=== PATIENT | male | born 1950 ===

== ENCOUNTER 2020-11-30 21:42 | Observation (INO) | payer MEDICARE, BC ==
[2020-11-30] MEDS ORDERED: Ondansetron 4 MG/2 ML SDV IVPUSH ONE (22:12)
[2020-11-30] MEDS ORDERED: Sodium Chloride 0.9% 10 ML Syringe FLUSH PRN (22:12)
[2020-11-30] MEDS ORDERED: Sodium Chloride 0.9% 1,000 ML IV SCH (22:15)
--- NOTE | 2020-11-30 22:28 | EDM.PDOC ---
<Susanne Borja M - Last Filed: 11/30/20 22:58> ED HPI GENERAL MEDICAL PROBLEM - General Chief Complaint: Gastrointestinal Problem Stated Complaint: WEAK/VOMITING/DEHYDRATED Time Seen by Provider: 11/30/20 21:55 Source of Information: Reports: Patient History Limitations: Reports: No Limitations - History of Present Illness INITIAL COMMENTS - FREE TEXT/NARRATIVE: 70-year-old male presents the emergency department with complaints of abdominal pain, nausea, and vomiting that started about 3:00 this afternoon. Patient states that he believes he has a bowel obstruction. He states he has had several in the past and this feels similar to the previous incidents. He states that about 3:00 this afternoon he developed abdominal cramping type of pain. He has also been chilled. Unknown whether or not he has had a fever. 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 Patient states that he has not had anything out of his ileostomy bag since the day before yesterday. He states that prior to 3:00 today he felt well and had had no recent fever, chills, nausea, vomiting or diarrhea. He has not had any cough, shortness of breath headache or sore throat or nasal drainage. He states he has been able to eat however he has not been taking much in the way of p.o. fluids and believes he is dehydrated. Of note, the patient's primary care provider is located in [place]. The patient states that he is traveling through to [place]. He does take a diuretic when he states his feet swell. He also takes narcotics chronically for chronic back pain. He also states that he takes low-dose Augmentin whenever he has abdominal cramping. He did take a dose of Augmentin today when he developed the abdominal cramps. Abdomen Pain Score (Numeric/FACES): 8 - Related Data Allergies Allergy/AdvReac Type Severity Reaction Status Date / Time No Known Allergies Allergy Verified 11/30/20 21:59 Home Meds: Home Meds Glucosamine [Glucosamine Sulfate] 500 mg PO DAILY 10/15/15 [History] Neon-3 Fatty Acids [Fish Oil] 500 mg PO DAILY 10/15/15 [History] Omeprazole 20 mg PO DAILY 10/15/15 [History] Zolpidem [Ambien] 5 mg PO BEDTIME 10/15/15 [History] oxyCODONE ER [OxyCONTIN] 10 mg PO Q12H PRN 10/15/15 [History] oxyCODONE HCl/Acetaminophen [Oxycodone-Acetaminophen 5-325] 0.5 tab PO QID PRN 10/15/15 [History] polyethylene glycoL 3350 [Miralax] 17 gm PO DAILY 10/15/15 [History] Past Medical History - Past Health History Medical/Surgical History: Denies Medical/Surgical History HEENT History: Reports: Impaired Vision Gastrointestinal History: Reports: Bowel Obstruction, Other (See Below) Other Gastrointestinal History: colostomy. Genitourinary History: Reports: Prostate Disorder, Other (See Below) Other Genitourinary History: urostomy Musculoskeletal History: Reports: Back Pain, Chronic Oncologic (Cancer) History: Reports: Prostate - Infectious Disease History Infectious Disease History: Reports: Chicken Pox, MRSA - Past Surgical History GI Surgical History: Reports: Colostomy Male Surgical History: Reports: Prostatectomy Musculoskeletal Surgical History: Reports: Other (See Below) Other Musculoskeletal Surgeries/Procedures:: back surg Other Oncologic Surgeries/Procedures: with radiation treatment Social & Family History - Family History Family Medical History: No Pertinent Family History - Tobacco Use Tobacco Use Status *Q: Never Tobacco User Second Hand Smoke Exposure: No - Caffeine Use Caffeine Use: Reports: Coffee - Recreational Drug Use Recreational Drug Use: No ED ROS GENERAL - Review of Systems Review Of Systems: Comprehensive ROS is negative, except as noted in HPI. ED EXAM, GI/ABD - Physical Exam Exam: See Below Exam Limited By: No Limitations General Appearance: Alert, WD/WN, Mild Distress Ears: Normal External Exam, Hearing Grossly Normal Nose: Normal Inspection Throat/Mouth: Normal Inspection, Normal Lips, Normal Voice, No Airway Compromise Head: Atraumatic Neck: Normal Inspection, Supple Respiratory/Chest: No Respiratory Distress, Lungs Clear, Normal Breath Sounds, No Accessory Muscle Use, Chest Non-Tender Cardiovascular: Normal Peripheral Pulses, Regular Rate, Rhythm, No Edema, No Murmur GI/Abdominal Exam: Normal Bowel Sounds, Non-Tender, Distended. No: Soft (Semifirm) (Male) Exam: Deferred Rectal (Males) Exam: Deferred Back Exam: Normal Inspection Extremities: Normal Inspection Neurological: Alert, Oriented, Normal Cognition Psychiatric: Normal Mood, Flat Affect Skin Exam: Warm, Dry, Intact, Normal Color, No Rash Lymphatic: No Adenopathy Course - Vital Signs Text/Narrative:: As stated above, the patient developed generalized abdominal discomfort, nausea, and vomiting at about 3 PM this afternoon. He also reports chills. He does have a history of bowel obstructions in the past and states that this feels similar to those incidents. Upon assessment, the patient is curled onto his left side as he states it feels better when he lays this way. He does have positive bowel tones in all 4 quadrants. Abdomen is slightly distended and firm. Patient denies abdominal tenderness with palpation. There is no stool noted in his colostomy bag. I have ordered labs to include a CBC, CMP, magnesium level, urinalysis with micro and culture if indicated, and a flat and upright of the abdomen. Patient will receive normal saline and Zofran. - Re-Assessments/Exams Free Text/Narrative Re-Assessment/Exam: 11/30/20 22:58 I have handed over care to Dr. Rajan. Departure - Departure Disposition: Refer to Observation Clinical Impression: Small bowel obstruction - Discharge Information Referrals: Tiffany Gaspar, RN [Primary Care Provider] - Forms: ED Department Discharge Sepsis Event Note (ED) - Evaluation Sepsis Screening Result: No Definite Risk <Reynold Rajan - Last Filed: 12/01/20 08:40> Course - Vital Signs Last Recorded V/S: Last Vital Signs Temp 36.3 C 11/30/20 21:56 Pulse 48 L 11/30/20 21:56 Resp 20 11/30/20 21:56 BP 162/69 H 11/30/20 21:56 Pulse Ox 97 11/30/20 21:56 - Orders/Labs/Meds Orders: Active Orders 24 hr Category Date Time Status Abdomen 2V AP Flat Upright [CR] Stat Exams 11/30/20 22:14 Taken Abdomen Pelvis w Cont [CT] Stat Exams 12/01/20 04:09 Taken Lactated Ringers @ 125 MLS/HR(1000ml Bag) Med 12/01/20 08:45 Ordered Lactated Ringers [Ringers, Lactated] 1,000 ml IV ASDIRECTED Sodium Chloride 0.9% [Normal Saline] 1,000 ml Med 11/30/20 22:15 Stop Req IV ASDIRECTED Sodium Chloride 0.9% [Saline Flush] Med 11/30/20 22:12 Active 10 ml FLUSH ASDIRECTED PRN Sodium Chloride 0.9% [Saline Flush] Med 12/01/20 08:32 Active 10 ml FLUSH ONETIME PRN Saline Lock Insert [OM.PC] Stat Oth 11/30/20 22:12 Ordered Medication Orders Sodium Chloride (Normal Saline) 1,000 mls @ 150 mls/hr IV ASDIRECTED NELSON Last Admin: 11/30/20 22:34 Dose: 150 mls/hr Documented by: BOLA Sodium Chloride (Sodium Chloride 0.9% 10 Ml Syringe) 10 ml FLUSH ASDIRECTED PRN PRN Reason: Keep Vein Open Last Admin: 11/30/20 22:34 Dose: 10 ml Documented by: BOLA Sodium Chloride (Sodium Chloride 0.9% 10 Ml Syringe) 10 ml FLUSH ONETIME PRN PRN Reason: IV FLUSH Last Admin: 12/01/20 08:33 Dose: 10 ml Documented by: ESTER Labs: Laboratory Tests 11/30/20 11/30/20 12/01/20 Range/Units 22:26 22:26 00:54 WBC 8.80 (4.23-9.07) K/mm3 RBC 4.00 L (4.63-6.08) M/mm3 Hgb 13.0 L (13.7-17.5) gm/dl Hct 38.5 L (40.1-51.0) % MCV 96.3 H (79.0-92.2) fl MCH 32.5 H (25.7-32.2) pg MCHC 33.8 (32.2-35.5) g/dl RDW Std Deviation 47.5 H (35.1-43.9) fL Plt Count 179 (163-337) K/mm3 MPV 9.0 L (9.4-12.3) fl Neut % (Auto) 89.9 H (34.0-67.9) % Lymph % (Auto) 6.3 L (21.8-53.1) % [place] % (Auto) 3.4 L (5.3-12.2) % Eos % (Auto) 0 L (0.8-7.0) Baso % (Auto) 0.1 (0.1-1.2) % Neut # (Auto) 7.91 H (1.78-5.38) K/mm3 Lymph # (Auto) 0.55 L (1.32-3.57) K/mm3 [place] # (Auto) 0.30 (0.30-0.82) K/mm3 Eos # (Auto) 0.00 L (0.04-0.54) K/mm3 Baso # (Auto) 0.01 (0.01-0.08) K/mm3 Manual Slide Review Abnormal smear Sodium 145 (136-145) mEq/L Potassium 3.8 (3.5-5.1) mEq/L Chloride 105 (98-107) mEq/L Carbon Dioxide 30 (21-32) mEq/L Anion Gap 13.8 (5-15) BUN 18 (7-18) mg/dL Creatinine 0.9 (0.7-1.3) mg/dL Est Cr Clr Drug Dosing 78.86 mL/min Estimated GFR (MDRD) > 60 (>60) mL/min BUN/Creatinine Ratio 20.0 H (14-18) Glucose 144 H (70-99) mg/dL Calcium 9.4 (8.5-10.1) mg/dL Magnesium 2.1 (1.8-2.4) mg/dL Total Bilirubin 0.6 (0.2-1.0) mg/dL AST 27 (15-37) U/L ALT 25 (16-63) U/L Alkaline Phosphatase 80 (46-116) U/L Total Protein 7.4 (6.4-8.2) g/dl Albumin 4.0 (3.4-5.0) g/dl Globulin 3.4 gm/dL Albumin/Globulin Ratio 1.2 (1-2) Urine Color Yellow (Yellow) Urine Appearance Slt cloudy H (Clear) Urine pH 8.5 H (5.0-8.0) Ur Specific [place] 1.020 (1.005-1.030) Urine Protein Negative (Negative) Urine Glucose (UA) Negative (Negative) Urine Ketones Negative (Negative) Urine Occult Blood Negative (Negative) Urine Nitrite Negative (Negative) Urine Bilirubin Negative (Negative) Urine Urobilinogen 0.2 (0.2-1.0) Ur Leukocyte Esterase Negative (Negative) Meds: Medications Generic Name Dose Route Start Last Admin Trade Name Freq PRN Reason Stop Dose Admin Sodium Chloride 1,000 mls @ 150 mls/hr 11/30/20 22:15 11/30/20 22:34 Normal Saline IV 150 mls/hr ASDIRECTED NELSON Administration Sodium Chloride 10 ml 11/30/20 22:12 11/30/20 22:34 Sodium Chloride 0.9% 10 Ml Syringe FLUSH 10 ml ASDIRECTED PRN Administration Keep Vein Open Sodium Chloride 10 ml 12/01/20 08:32 12/01/20 08:33 Sodium Chloride 0.9% 10 Ml Syringe FLUSH 10 ml ONETIME PRN Administration IV FLUSH Discontinued Medications Generic Name Dose Route Start Last Admin Trade Name Freq PRN Reason Stop Dose Admin Acetaminophen Confirm 12/01/20 03:18 Acetaminophen 325 Mg Tab Administered 12/01/20 03:19 Dose 650 mg .ROUTE .STK-MED ONE Acetaminophen 325 mg 12/01/20 04:07 12/01/20 04:08 Acetaminophen 325 Mg Tab PO 12/01/20 04:08 325 mg NOW ONE Administration Diatrizoate Meglum/Diatrizoate Sod 120 ml 12/01/20 08:32 12/01/20 08:33 Diatrizoate Meglumine/Diatrizoate Sodium 37% 120 Ml Bottle PO 12/01/20 08:33 30 ml ONETIME ONE Administration Iopamidol 100 ml 12/01/20 08:32 12/01/20 08:33 Iopamidol 612 Mg/Ml 100 Ml Bottle IVPUSH 12/01/20 08:33 100 ml ONETIME ONE Administration Ondansetron HCl 4 mg 11/30/20 22:12 11/30/20 22:34 Ondansetron 4 Mg/2 Ml Sdv IVPUSH 11/30/20 22:13 4 mg ONETIME ONE Administration - Re-Assessments/Exams Free Text/Narrative Re-Assessment/Exam: 12/01/20 04:04 Upright abdominal radiographs appear to demonstrate numerous small stepwise air-fluid levels on the left, concerning for small bowel obstruction. There is scoliosis. Surgical clips noted in the right upper quadrant, consistent with prior cholecystectomy. Numerous pelvic surgical clips. L4L5 fusion hardware noted. External metallic items, including a zipper and clips incidentally noted. Formal read per the Radiologist pending. The patient's CBC is remarkable for an H/H depressed at 13.0/38.5, with remainder of his CBC being unremarkable. His CMP is remarkable for mild hyperglycemia of 144, with the remainder of his CMP being unremarkable. His magnesium level is within normal limits at 2.1. His urinalysis is unremarkable. Based on the above, I have ordered a CT of the abdomen and pelvis with oral and IV contrast to evaluate for a small bowel obstruction. 12/01/20 08:34 T of the abdomen and pelvis with oral and IV contrast is read by Mirna Srivastava as: 1. Findings within the pelvis compatible with previous surgery. Urinary diversion is seen as well as left-sided colostomy. Soft tissue density within the paratracheal region is most likely postsurgical. 2. Mildly increased size of small bowel loops containing fluid. Findings felt compatible with a small bowel obstruction with transition point appearing to be within the right lower abdomen which most likely represents nonvisualized adhesions. 3. Dilated left ureter which most likely is postsurgical as no etiology is seen. 4. Spine findings are noted above which are likely chronic. Case discussed with Dr. Bales at 08:32. She agreed to place the patient into observation. She would like the patient to be on LR at 125 mL/h. Departure - Departure Time of Disposition: 08:38 Condition: Good - Discharge Information *PRESCRIPTION DRUG MONITORING PROGRAM REVIEWED*: Not Applicable *COPY OF PRESCRIPTION DRUG MONITORING REPORT IN PATIENT DARREN: Not Applicable Sepsis Event Note (ED) - Focused Exam Vital Signs: Vital Signs Temp Pulse Resp BP Pulse Ox 11/30/20 21:56 36.3 C 48 L 20 162/69 H 97 - My Orders Last 24 Hours: My Active Orders 12/01/20 04:09 Abdomen Pelvis w Cont [CT] Stat 12/01/20 08:45 Lactated Ringers @ 125 MLS/HR(1000ml Bag) Lactated Ringers [Ringers, Lactated] 1,000 ml IV ASDIRECTED - Assessment/Plan Last 24 Hours: My Active Orders 12/01/20 04:09 Abdomen Pelvis w Cont [CT] Stat 12/01/20 08:45 Lactated Ringers @ 125 MLS/HR(1000ml Bag) Lactated Ringers [Ringers, Lactated] 1,000 ml IV ASDIRECTED
[2020-12-01] MEDS ORDERED: Acetaminophen 325 MG Tab ONE (03:18)
[2020-12-01] MEDS ORDERED: Acetaminophen 325 MG Tab PO ONE (04:07)
[2020-12-01] MEDS ORDERED: Diatrizoate Meglumine/Diatrizoate Sodium 37% 120 ML Bottle PO ONE (08:32)
[2020-12-01] MEDS ORDERED: Sodium Chloride 0.9% 10 ML Syringe FLUSH PRN (08:32)
[2020-12-01] MEDS ORDERED: Iopamidol 612 MG/ML 100 ML Bottle IVPUSH ONE (08:32)
[2020-12-01] MEDS: Lactated Ringers 1,000 ML IV SCH ×2 (08:54→16:43)
--- NOTE | 2020-12-01 10:19 | CR ---
Abdomen: Upright and supine views of the abdomen were obtained. Comparison: No prior abdominal imaging is available. Scattered dilated left-sided small bowel loops showing differential air-fluid levels. These findings are suspicious for partial small bowel obstruction. Surgical clips are seen from prior cholecystectomy. Surgical clips are seen within the pelvis. Previous lumbar spine surgery is noted at L4-5 with trans- pedicle screws. No discrete soft tissue abnormality is definitely appreciated. Slight atelectasis is seen within the left lung base. Impression: 1. Findings suspicious for mild proximal small bowel obstruction which is most likely partial. Please correlate with the patient's symptoms. 2. Other findings believed to be incidental as noted above. Diagnostic code #3 MTDD
--- NOTE | 2020-12-01 10:35 | CT ---
CT abdomen and pelvis Technique: Multiple axial sections were obtained from above the dome of the diaphragm inferiorly through the pubic symphysis. Intravenous contrast was utilized. Oral contrast was given which remains within the stomach. Reconstructed coronal and sagittal images were obtained. Comparison: Prior abdominal x-ray performed earlier on same day (10:55 PM). Findings: Visualized lung bases show increased density within both lung bases most likely representing a combination of scarring and atelectasis. Coronary artery calcification is noted. Liver shows no focal abnormality. Spleen size is normal. Adrenal glands show no nodule. Surgical clips are seen from prior cholecystectomy. Pancreas shows no discrete abnormality. Left ureter is dilated and etiology for this dilatation is not seen on this exam which is likely post-surgical. Bladder is not visualized with evidence of urinary diversion. Multiple surgical clips are seen within the pelvis. Soft tissue density is seen within the presacral region presumably due to prior surgery. Abdominal aorta shows atherosclerotic calcification with no aneurysm. Atherosclerotic calcification continues into the iliac vessels. No retroperitoneal adenopathy is seen. Left-sided colostomy is noted. Mildly dilated small bowel loops containing fluid are seen within the left side of the abdomen as well as a minimal dilated right-sided small bowel loops. Distal small bowel loops show no dilatation. Point of change appears to be within the right lower abdomen and no etiology is seen and this is most likely due to adhesions. Surgical clips are seen within the bowel within the right abdomen. Slight increased stool is noted within the colon. Bone window settings were reviewed which show severe compression deformity of L1 with retrolisthesis of the posterior vertebral line into the central canal by approximately 8 mm causing mild central canal stenosis which is likely chronic. Previous surgery is noted at L4-5 with trans-pedicle screws. Lesser degenerative change as noted above. Impression: 1. Findings within the pelvis compatible with previous surgery. Urinary diversion is seen as well as left-sided colostomy. Soft tissue density within the pretracheal region is most likely post-surgical. 2. Mildly increased size of small bowel loops containing fluid. Findings are felt compatible with a mild small bowel obstruction with transition point appearing to be within the right lower abdomen which most likely represents nonvisualized adhesions. 3. Dilated left ureter which most likely is post-surgical as no etiology is seen. 4. Spine findings as noted above which are likely chronic. Diagnostic code #3 MTDD
--- NOTE | 2020-12-01 12:49 | PCM.HP.2 ---
H&P History of Present Illness - General Date of Service: 12/01/20 Admit Problem/Dx: Admission Diagnosis/Problem Admission Diagnosis/Problem Small bowel obstruction Source of Information: Patient, Provider History Limitations: Reports: No Limitations - History of Present Illness Initial Comments - Free Text/Narative: The patient is a 70y/o gentleman who presents with a small bowel obstruction. He reports having nausea, vomiting, and abdominal pain that started yesterday a fternoon. He reports the last gas or stool in his ostomy was approximately 2 days ago. He had subjective fever and chills yesterday evening. He presented to the ED and had radiologic evaluation that showed a small bowel obstruction. He currently denies any abdominal pain, nausea or vomiting. Abdomen Pain Score (Numeric/FACES): 8 - Related Data Allergies/Adverse Reactions: Allergies Allergy/AdvReac Type Severity Reaction Status Date / Time No Known Allergies Allergy Verified 12/01/20 11:52 Home Medications: Home Meds Glucosamine [Glucosamine Sulfate] 500 mg PO DAILY 10/15/15 [History] [place]-3 Fatty Acids [Fish Oil] 500 mg PO DAILY 10/15/15 [History] Omeprazole 20 mg PO DAILY 10/15/15 [History] Zolpidem [Ambien] 5 mg PO BEDTIME 10/15/15 [History] oxyCODONE ER [OxyCONTIN] 10 mg PO Q12H PRN 10/15/15 [History] oxyCODONE HCl/Acetaminophen [Oxycodone-Acetaminophen 5-325] 0.5 tab PO QID PRN 10/15/15 [History] polyethylene glycoL 3350 [Miralax] 17 gm PO DAILY 10/15/15 [History] Past Medical History HEENT History: Reports: Impaired Vision, Other (See Below) Other HEENT History: wear glasses Gastrointestinal History: Reports: Bowel Obstruction Other Gastrointestinal History: colostomy. Genitourinary History: Reports: Prostate Disorder, Other (See Below) Other Genitourinary History: urostomy Musculoskeletal History: Reports: Back Pain, Chronic Oncologic (Cancer) History: Reports: Prostate, Other (See Below) Other Oncologic History: skin cancer-pt states had removed - Infectious Disease History Infectious Disease History: Reports: Chicken Pox, Measles, MRSA, Mumps, Other (See Below) Other Infectious Disease History: pt states has hx of mrsa - Past Surgical History GI Surgical History: Reports: Colostomy Male Surgical History: Reports: Prostatectomy, Other (See Below) (urostomy placement) Musculoskeletal Surgical History: Reports: Shoulder Replacement, Other (See Below) Other Musculoskeletal Surgeries/Procedures:: back sx Other Oncologic Surgeries/Procedures: with radiation treatment Social & Family History - Family History Family Medical History: No Pertinent Family History (mother and father are , no medical problems) - Tobacco Use Tobacco Use Status *Q: Never Tobacco User Second Hand Smoke Exposure: No - Caffeine Use Caffeine Use: Reports: Coffee, Soda - Recreational Drug Use Recreational Drug Use: No H&P Review of Systems - Review of Systems: Review Of Systems: See Below General: Reports: Fever, Chills HEENT: Reports: No Symptoms Pulmonary: Reports: No Symptoms Cardiovascular: Reports: No Symptoms Gastrointestinal: Reports: No Symptoms Genitourinary: Reports: No Symptoms Hematologic/Lymphatic: Reports: No Symptoms Exam - Exam Exam: See Below - Vital Signs Vital Signs: Last Vital Signs Temp 37.2 C 12/01/20 11:55 Pulse 57 L 12/01/20 11:55 Resp 12 12/01/20 11:55 BP 127/64 12/01/20 11:55 Pulse Ox 100 12/01/20 11:55 Weight: 95.935 kg - Exam Quality Assessment: No: Supplemental Oxygen General: Alert, Oriented HEENT: Conjunctiva Clear, EOMI Neck: Supple Lungs: Clear to Auscultation, Normal Respiratory Effort Cardiovascular: Regular Rate, Regular Rhythm, Systolic Murmur GI/Abdominal Exam: Soft, Non-Tender, Distended Extremities: Normal Inspection, No Pedal Edema Peripheral Pulses: 2+: Dorsalis Pedis (L), Dorsalis Pedis (R) Skin: Warm, Dry, Intact Neurological: Cranial Nerves Intact Neuro Extensive - Mental Status: Normal Mood/Affect - Patient Data Lab Results Last 24 hrs: Laboratory Results - last 24 hr 11/30/20 11/30/20 12/01/20 Range/Units 22:26 22:26 00:54 WBC 8.80 (4.23-9.07) K/mm3 RBC 4.00 L (4.63-6.08) M/mm3 Hgb 13.0 L (13.7-17.5) gm/dl Hct 38.5 L (40.1-51.0) % MCV 96.3 H (79.0-92.2) fl MCH 32.5 H (25.7-32.2) pg MCHC 33.8 (32.2-35.5) g/dl RDW Std Deviation 47.5 H (35.1-43.9) fL Plt Count 179 (163-337) K/mm3 MPV 9.0 L (9.4-12.3) fl Neut % (Auto) 89.9 H (34.0-67.9) % Lymph % (Auto) 6.3 L (21.8-53.1) % [place] % (Auto) 3.4 L (5.3-12.2) % Eos % (Auto) 0 L (0.8-7.0) Baso % (Auto) 0.1 (0.1-1.2) % Neut # (Auto) 7.91 H (1.78-5.38) K/mm3 Lymph # (Auto) 0.55 L (1.32-3.57) K/mm3 [place] # (Auto) 0.30 (0.30-0.82) K/mm3 Eos # (Auto) 0.00 L (0.04-0.54) K/mm3 Baso # (Auto) 0.01 (0.01-0.08) K/mm3 Manual Slide Review Abnormal smear Sodium 145 (136-145) mEq/L Potassium 3.8 (3.5-5.1) mEq/L Chloride 105 (98-107) mEq/L Carbon Dioxide 30 (21-32) mEq/L Anion Gap 13.8 (5-15) BUN 18 (7-18) mg/dL Creatinine 0.9 (0.7-1.3) mg/dL Est Cr Clr Drug Dosing 78.86 mL/min Estimated GFR (MDRD) > 60 (>60) mL/min BUN/Creatinine Ratio 20.0 H (14-18) Glucose 144 H (70-99) mg/dL Calcium 9.4 (8.5-10.1) mg/dL Magnesium 2.1 (1.8-2.4) mg/dL Total Bilirubin 0.6 (0.2-1.0) mg/dL AST 27 (15-37) U/L ALT 25 (16-63) U/L Alkaline Phosphatase 80 (46-116) U/L Total Protein 7.4 (6.4-8.2) g/dl Albumin 4.0 (3.4-5.0) g/dl Globulin 3.4 gm/dL Albumin/Globulin Ratio 1.2 (1-2) Urine Color Yellow (Yellow) Urine Appearance Slt cloudy H (Clear) Urine pH 8.5 H (5.0-8.0) Ur Specific [place] 1.020 (1.005-1.030) Urine Protein Negative (Negative) Urine Glucose (UA) Negative (Negative) Urine Ketones Negative (Negative) Urine Occult Blood Negative (Negative) Urine Nitrite Negative (Negative) Urine Bilirubin Negative (Negative) Urine Urobilinogen 0.2 (0.2-1.0) Ur Leukocyte Esterase Negative (Negative) SARS-CoV-2 RNA (MARIA A) (NEGATIVE) 12/01/20 Range/Units 09:58 WBC (4.23-9.07) K/mm3 RBC (4.63-6.08) M/mm3 Hgb (13.7-17.5) gm/dl Hct (40.1-51.0) % MCV (79.0-92.2) fl MCH (25.7-32.2) pg MCHC (32.2-35.5) g/dl RDW Std Deviation (35.1-43.9) fL Plt Count (163-337) K/mm3 MPV (9.4-12.3) fl Neut % (Auto) (34.0-67.9) % Lymph % (Auto) (21.8-53.1) % [place] % (Auto) (5.3-12.2) % Eos % (Auto) (0.8-7.0) Baso % (Auto) (0.1-1.2) % Neut # (Auto) (1.78-5.38) K/mm3 Lymph # (Auto) (1.32-3.57) K/mm3 [place] # (Auto) (0.30-0.82) K/mm3 Eos # (Auto) (0.04-0.54) K/mm3 Baso # (Auto) (0.01-0.08) K/mm3 Manual Slide Review Sodium (136-145) mEq/L Potassium (3.5-5.1) mEq/L Chloride (98-107) mEq/L Carbon Dioxide (21-32) mEq/L Anion Gap (5-15) BUN (7-18) mg/dL Creatinine (0.7-1.3) mg/dL Est Cr Clr Drug Dosing mL/min Estimated GFR (MDRD) (>60) mL/min BUN/Creatinine Ratio (14-18) Glucose (70-99) mg/dL Calcium (8.5-10.1) mg/dL Magnesium (1.8-2.4) mg/dL Total Bilirubin (0.2-1.0) mg/dL AST (15-37) U/L ALT (16-63) U/L Alkaline Phosphatase (46-116) U/L Total Protein (6.4-8.2) g/dl Albumin (3.4-5.0) g/dl Globulin gm/dL Albumin/Globulin Ratio (1-2) Urine Color (Yellow) Urine Appearance (Clear) Urine pH (5.0-8.0) Ur Specific [place] (1.005-1.030) Urine Protein (Negative) Urine Glucose (UA) (Negative) Urine Ketones (Negative) Urine Occult Blood (Negative) Urine Nitrite (Negative) Urine Bilirubin (Negative) Urine Urobilinogen (0.2-1.0) Ur Leukocyte Esterase (Negative) SARS-CoV-2 RNA (MARIA A) Negative (NEGATIVE) Result Diagrams: 11/30/20 22:26 11/30/20 22:26 Sepsis Event Note - Evaluation Sepsis Screening Result: No Definite Risk - Focused Exam Vital Signs: Vital Signs Temp Pulse Resp BP Pulse Ox 12/01/20 11:55 37.2 C 57 L 12 127/64 100 12/01/20 11:32 37.2 C 56 L 20 127/64 99 12/01/20 08:55 37.1 C 58 L 12 120/65 98 *Q Meaningful Use (ADM) - VTE Risk Assess *Q Each Risk Factor Represents 1 Point: Obesity ( BMI > 25 kg/m2) Total Score 1 Point Risk Factors: 1 Each Risk Factor Represents 2 Points: Age 60 - 74 Years, Malignancy (present or previous) Total Score 2 Point Risk Factors: 4 - Problem List (1) Small bowel obstruction SNOMED Code(s): 692711079 ICD Code: K56.609 - UNSP INTESTNL OBST, UNSP TO PARTIAL VERSUS COMPLETE OBST Status: Acute Current Visit: Yes Problem List Initiated/Reviewed/Updated: Yes Orders Last 24hrs: Active Orders 24 hr Category Date Time Status Patient Status [ADT] Routine ADT 12/01/20 10:00 Active METH-RESIST S.AUR,MRSA BY PCR [MOLEC] Routine Lab 12/01/20 12:04 Ordered MISCELLANEOUS CULT [MREF] Routine Lab 12/01/20 12:06 Ordered Lactated Ringers [Ringers, Lactated] 1,000 ml Med 12/01/20 08:45 Active IV ASDIRECTED Sodium Chloride 0.9% [Saline Flush] Med 11/30/20 22:12 Active 10 ml FLUSH ASDIRECTED PRN Sodium Chloride 0.9% [Saline Flush] Med 12/01/20 08:32 Active 10 ml FLUSH ONETIME PRN Saline Lock Insert [OM.PC] Stat Oth 11/30/20 22:12 Ordered Resuscitation Status Routine Resus Stat 12/01/20 11:53 Ordered Medication Orders Lactated Ringer's (Ringers, Lactated) 1,000 mls @ 125 mls/hr IV ASDIRECTED [facility] Last Admin: 12/01/20 08:54 Dose: 125 mls/hr Documented by: ELVIN Sodium Chloride (Sodium Chloride 0.9% 10 Ml Syringe) 10 ml FLUSH ASDIRECTED PRN PRN Reason: Keep Vein Open Last Admin: 11/30/20 22:34 Dose: 10 ml Documented by: BOLA Sodium Chloride (Sodium Chloride 0.9% 10 Ml Syringe) 10 ml FLUSH ONETIME PRN PRN Reason: IV FLUSH Last Admin: 12/01/20 08:33 Dose: 10 ml Documented by: ESTER Assessment/Plan Comment:: 70 y/o gentleman with small bowel obstruction - pt appears to have a low grade obstruction, no current pain, nausea or vomiting. Will place NGT if his symptoms worsen - NPO with IVF resuscitation NS @125 - may have home medications with a sip of water, otherwise maintain NPO - pt to continue his ostomy care, with nursing to assist only as needed - await return of bowel function Alisia Bales MD General surgery - Mortality Measure Prognosis:: Good
[2020-12-01] MEDS ORDERED: oxyCODONE ER 10 MG TAB.ER PO PRN (12:55)
[2020-12-01] MEDS ORDERED: Acetaminophen/oxyCODONE 325-5 MG Tab PO PRN (12:55)
[2020-12-01] MEDS: Acetaminophen 325 MG Tab PO PRN ×2 (14:01→19:31)
[2020-12-01] MEDS ORDERED: Carboxymethylcellulose Sodium 1% Ophth Gel 15 ML Bottle EYEBOTH PRN (14:27)
[2020-12-01] MEDS: Heparin Sodium 5,000 Units/ML Vial SUBCUT SCH ×2 (15:15→23:44)
[2020-12-01] MEDS: Meloxicam 7.5 MG Tab PO SCH (20:08)
[2020-12-01] MEDS ORDERED: Zolpidem 5 MG Tab PO SCH (21:00)
[2020-12-02] MEDS: Lactated Ringers 1,000 ML IV SCH (00:45)
[2020-12-02] MEDS: Heparin Sodium 5,000 Units/ML Vial SUBCUT SCH (06:07)
[2020-12-02] MEDS ORDERED: Acetaminophen/oxyCODONE 325-5 MG Tab PO PRN (08:45)
[2020-12-02] MEDS ORDERED: oxyCODONE ER 10 MG TAB.ER PO PRN (08:45)
[2020-12-02] MEDS ORDERED: Omeprazole 20 MG Cap.CR PO SCH (09:00)
[2020-12-02] MEDS ORDERED: GLUCOSAMINE 500 MG PO SCH (09:00)
[2020-12-02] MEDS ORDERED: Ascorbic Acid 500 MG Tab PO SCH (09:00)
[2020-12-02] MEDS ORDERED: Ferrous Sulfate 324 MG Tab.EC PO SCH (09:00)
[2020-12-02] MEDS ORDERED: Hydrochlorothiazide 25 MG Tab PO SCH ×2 (09:00)
[2020-12-02] MEDS ORDERED: OMEGA PO SCH (09:00)
[2020-12-02] MEDS ORDERED: FATTY ACIDS PO SCH (09:00)
[2020-12-02] MEDS: Meloxicam 7.5 MG Tab PO SCH (09:09)
[2020-12-02 10:01] VITALS: BP 133/72; PULSE 57
--- NOTE | 2020-12-02 10:24 | PCM.SURGPN ---
- General Info Date of Service: 12/02/20 Admission Diagnosis/Problem: Small bowel obstruction Functional Status: Reports: Pain Controlled, Tolerating Diet, Other (pt had ROBF with two bowel movements yesterday) - Patient Data Vitals - Most Recent: Last Vital Signs Temp 36.6 C 12/02/20 09:13 Pulse 57 L 12/02/20 09:13 Resp 20 12/02/20 09:13 BP 133/72 12/02/20 09:13 Pulse Ox 98 12/02/20 09:13 Weight - Most Recent: 95.481 kg I&O - Last 24 Hours: Intake & Output 12/01/20 12/02/20 12/02/20 22:59 06:59 14:59 Intake Total 165 2265 Output Total 125 200 Balance 40 2065 Lab Results Last 24 Hrs: Laboratory Results - last 24 hr 12/01/20 12/01/20 12/02/20 Range/Units 09:58 13:26 05:28 WBC 6.66 (4.23-9.07) K/mm3 RBC 3.49 L (4.63-6.08) M/mm3 Hgb 11.3 L D (13.7-17.5) gm/dl Hct 34.4 L (40.1-51.0) % MCV 98.6 H (79.0-92.2) fl MCH 32.4 H (25.7-32.2) pg MCHC 32.8 (32.2-35.5) g/dl RDW Std Deviation 48.9 H (35.1-43.9) fL Plt Count 150 L (163-337) K/mm3 MPV 9.6 (9.4-12.3) fl Neut % (Auto) 75.9 H (34.0-67.9) % Lymph % (Auto) 14.4 L (21.8-53.1) % [place] % (Auto) 9.0 (5.3-12.2) % Eos % (Auto) 0.3 L (0.8-7.0) Baso % (Auto) 0.2 (0.1-1.2) % Neut # (Auto) 5.06 (1.78-5.38) K/mm3 Lymph # (Auto) 0.96 L (1.32-3.57) K/mm3 [place] # (Auto) 0.60 (0.30-0.82) K/mm3 Eos # (Auto) 0.02 L (0.04-0.54) K/mm3 Baso # (Auto) 0.01 (0.01-0.08) K/mm3 Sodium (136-145) mEq/L Potassium (3.5-5.1) mEq/L Chloride (98-107) mEq/L Carbon Dioxide (21-32) mEq/L Anion Gap (5-15) BUN (7-18) mg/dL Creatinine (0.7-1.3) mg/dL Est Cr Clr Drug Dosing mL/min Estimated GFR (MDRD) (>60) mL/min BUN/Creatinine Ratio (14-18) Glucose (70-99) mg/dL Calcium (8.5-10.1) mg/dL Phosphorus (2.6-4.7) mg/dL Magnesium (1.8-2.4) mg/dL SARS-CoV-2 RNA (MARIA A) Negative (NEGATIVE) MRSA (PCR) Negative 12/02/20 Range/Units 05:28 WBC (4.23-9.07) K/mm3 RBC (4.63-6.08) M/mm3 Hgb (13.7-17.5) gm/dl Hct (40.1-51.0) % MCV (79.0-92.2) fl MCH (25.7-32.2) pg MCHC (32.2-35.5) g/dl RDW Std Deviation (35.1-43.9) fL Plt Count (163-337) K/mm3 MPV (9.4-12.3) fl Neut % (Auto) (34.0-67.9) % Lymph % (Auto) (21.8-53.1) % [place] % (Auto) (5.3-12.2) % Eos % (Auto) (0.8-7.0) Baso % (Auto) (0.1-1.2) % Neut # (Auto) (1.78-5.38) K/mm3 Lymph # (Auto) (1.32-3.57) K/mm3 [place] # (Auto) (0.30-0.82) K/mm3 Eos # (Auto) (0.04-0.54) K/mm3 Baso # (Auto) (0.01-0.08) K/mm3 Sodium 147 H (136-145) mEq/L Potassium 3.7 (3.5-5.1) mEq/L Chloride 112 H (98-107) mEq/L Carbon Dioxide 26 (21-32) mEq/L Anion Gap 12.7 (5-15) BUN 21 H (7-18) mg/dL Creatinine 0.7 (0.7-1.3) mg/dL Est Cr Clr Drug Dosing 101.39 mL/min Estimated GFR (MDRD) > 60 (>60) mL/min BUN/Creatinine Ratio 30.0 H (14-18) Glucose 86 (70-99) mg/dL Calcium 8.4 L (8.5-10.1) mg/dL Phosphorus 3.1 (2.6-4.7) mg/dL Magnesium 2.0 (1.8-2.4) mg/dL SARS-CoV-2 RNA (MARIA A) (NEGATIVE) MRSA (PCR) Med Orders - Current: Current Medications Acetaminophen (Acetaminophen 325 Mg Tab) 650 mg PO Q4H PRN PRN Reason: Pain/Fever Last Admin: 12/01/20 19:31 Dose: 650 mg Documented by: Artificial Tears (Carboxymethylcellulose Sodium 1% Ophth Gel 15 Ml Bottle) 0 ml EYEBOTH DAILY PRN PRN Reason: Dry Eyes Ascorbic Acid (Ascorbic Acid 500 Mg Tab) 500 mg PO DAILY [facility] Last Admin: 12/02/20 09:08 Dose: 500 mg Documented by: Ferrous Sulfate (Ferrous Sulfate 324 Mg Tab.Ec) 324 mg PO DAILY [facility] Last Admin: 12/02/20 09:08 Dose: 324 mg Documented by: Heparin Sodium (Porcine) (Heparin Sodium 5,000 Units/Ml Vial) 5,000 units SUBCUT Q8H [facility] Last Admin: 12/02/20 06:07 Dose: 5,000 units Documented by: Hydrochlorothiazide (Hydrochlorothiazide 25 Mg Tab) 25 mg PO DAILY [facility] Last Admin: 12/02/20 09:08 Dose: 25 mg Documented by: Meloxicam (Meloxicam 7.5 Mg Tab) 7.5 mg PO BID [facility] Last Admin: 12/02/20 09:09 Dose: Not Given Documented by: Glucosamine 500 Mg (Cap - Pt's Own Med) 0 mg PO DAILY [facility] Last Admin: 12/02/20 09:09 Dose: Not Given Documented by: [place]-3 Fatty Acids [Fish Oil] 500 Mg Capsule) 0 mg PO DAILY [facility] Last Admin: 12/02/20 09:10 Dose: Not Given Documented by: Omeprazole (Omeprazole 20 Mg Cap.Cr) 20 mg PO DAILY [facility] Last Admin: 12/02/20 09:08 Dose: 20 mg Documented by: Oxycodone HCl (Oxycodone Er 10 Mg Tab.Er) 10 mg PO Q12H PRN PRN Reason: Pain Oxycodone/Acetaminophen (Acetaminophen/Oxycodone 325-5 Mg Tab) 0.5 tab PO QID PRN PRN Reason: Pain Sodium Chloride (Sodium Chloride 0.9% 10 Ml Syringe) 10 ml FLUSH ASDIRECTED PRN PRN Reason: Keep Vein Open Last Admin: 11/30/20 22:34 Dose: 10 ml Documented by: Zolpidem Tartrate (Zolpidem 5 Mg Tab) 5 mg PO BEDTIME [facility] Discontinued Medications Acetaminophen (Acetaminophen 325 Mg Tab) Confirm Administered Dose 650 mg .ROUTE .STK-MED ONE Stop: 12/01/20 03:19 Last Admin: 12/01/20 13:42 Dose: Not Given Documented by: Acetaminophen (Acetaminophen 325 Mg Tab) 325 mg PO NOW ONE Stop: 12/01/20 04:08 Last Admin: 12/01/20 04:08 Dose: 325 mg Documented by: Diatrizoate Meglum/Diatrizoate Sod (Diatrizoate Meglumine/Diatrizoate Sodium 37% 120 Ml Bottle) 120 ml PO ONETIME ONE Stop: 12/01/20 08:33 Last Admin: 12/01/20 08:33 Dose: 30 ml Documented by: Hydrochlorothiazide (Hydrochlorothiazide 25 Mg Tab) 25 mg PO DAILY [facility] Sodium Chloride (Normal Saline) 1,000 mls @ 150 mls/hr IV ASDIRECTED [facility] Last Admin: 11/30/20 22:34 Dose: 150 mls/hr Documented by: Lactated Ringer's (Ringers, Lactated) 1,000 mls @ 125 mls/hr IV ASDIRECTED [facility] Last Admin: 12/02/20 00:45 Dose: 125 mls/hr Documented by: Iopamidol (Iopamidol 612 Mg/Ml 100 Ml Bottle) 100 ml IVPUSH ONETIME ONE Stop: 12/01/20 08:33 Last Admin: 12/01/20 08:33 Dose: 100 ml Documented by: Ondansetron HCl (Ondansetron 4 Mg/2 Ml Sdv) 4 mg IVPUSH ONETIME ONE Stop: 11/30/20 22:13 Last Admin: 11/30/20 22:34 Dose: 4 mg Documented by: Oxycodone HCl (Oxycodone Er 10 Mg Tab.Er) 10 mg PO Q12H PRN PRN Reason: Pain Oxycodone/Acetaminophen (Acetaminophen/Oxycodone 325-5 Mg Tab) 0.5 tab PO QID PRN PRN Reason: Pain Last Admin: 12/01/20 16:48 Dose: 0.5 tab Documented by: Sodium Chloride (Sodium Chloride 0.9% 10 Ml Syringe) 10 ml FLUSH ONETIME PRN PRN Reason: IV FLUSH Last Admin: 12/01/20 08:33 Dose: 10 ml Documented by: Zolpidem Tartrate (Zolpidem 5 Mg Tab) 5 mg PO BEDTIME [facility] Last Admin: 12/01/20 20:05 Dose: 5 mg Documented by: - Exam General: Alert, Oriented HEENT: Pupils Equal, EOMI Neck: Supple Lungs: Normal Respiratory Effort GI/Abdominal Exam: Soft, Non-Tender, Distended Sepsis Event Note - Evaluation Sepsis Screening Result: No Definite Risk - Focused Exam Vital Signs: Vital Signs Temp Pulse Resp BP Pulse Ox 12/02/20 09:13 36.6 C 57 L 20 133/72 98 12/02/20 06:09 36.7 C 52 L 16 113/67 96 12/01/20 23:43 36.9 C 58 L 16 109/65 94 L - Problem List & Annotations (1) Small bowel obstruction SNOMED Code(s): 584969135 Code(s): K56.609 - UNSP INTESTNL OBST, UNSP TO PARTIAL VERSUS COMPLETE OBST Status: Acute Current Visit: Yes - Problem List Review Problem List Initiated/Reviewed/Updated: Yes - My Orders Last 24 Hours: Active Orders 24 hr Category Date Time Status Patient Status [ADT] Routine ADT 12/01/20 10:00 Active Ambulate [RC] PER UNIT ROUTINE Care 12/01/20 14:08 Active Antiembolic Devices [RC] PER UNIT ROUTINE Care 12/01/20 14:29 Active Ready for Discharge [RC] PER UNIT ROUTINE Care 12/02/20 10:22 Ordered Regular Diet [DIET] Diet 12/02/20 Breakfast Active MISCELLANEOUS CULT [MREF] Routine Lab 12/01/20 13:26 Received Acetaminophen [TylenoL] Med 12/01/20 13:43 Active 650 mg PO Q4H PRN Acetaminophen/oxyCODONE [Percocet 325-5 MG] Med 12/02/20 08:45 Active 0.5 tab PO QID PRN Ascorbic Acid [Vitamin C] Med 12/02/20 09:00 Active 500 mg PO DAILY Carboxymethylcellulose Sodium [Refresh Liquigel 1%] Med 12/01/20 14:27 Active 0 ml EYEBOTH DAILY PRN Ferrous Sulfate Med 12/02/20 09:00 Active 324 mg PO DAILY Glucosamine Med 12/02/20 09:00 Active 0 mg PO DAILY Heparin Sodium Med 12/01/20 15:00 Active 5,000 units SUBCUT Q8H Meloxicam [Mobic] Med 12/01/20 21:00 Active 7.5 mg PO BID [place]-3 Fatty Acids [Fish Oil] Med 12/02/20 09:00 Active 0 mg PO DAILY Omeprazole Med 12/02/20 09:00 Active 20 mg PO DAILY Zolpidem [Ambien] Med 12/02/20 21:00 Active 5 mg PO BEDTIME hydroCHLOROthiazide Med 12/02/20 09:00 Active 25 mg PO DAILY oxyCODONE ER [OxyCONTIN] Med 12/02/20 08:45 Active 10 mg PO Q12H PRN SCD [Sequential Compression Device] [OM.PC] Routine Oth 12/01/20 14:29 Ordered Resuscitation Status Routine Resus Stat 12/01/20 11:53 Ordered Medication Orders Acetaminophen (Acetaminophen 325 Mg Tab) 650 mg PO Q4H PRN PRN Reason: Pain/Fever Last Admin: 12/01/20 19:31 Dose: 650 mg Documented by: Admin: 12/01/20 14:01 Dose: 650 mg Documented by: MALCOM Artificial Tears (Carboxymethylcellulose Sodium 1% Ophth Gel 15 Ml Bottle) 0 ml EYEBOTH DAILY PRN PRN Reason: Dry Eyes Ascorbic Acid (Ascorbic Acid 500 Mg Tab) 500 mg PO DAILY [facility] Last Admin: 12/02/20 09:08 Dose: 500 mg Documented by: ERAN Ferrous Sulfate (Ferrous Sulfate 324 Mg Tab.Ec) 324 mg PO DAILY [facility] Last Admin: 12/02/20 09:08 Dose: 324 mg Documented by: ERAN Heparin Sodium (Porcine) (Heparin Sodium 5,000 Units/Ml Vial) 5,000 units SUBCUT Q8H [facility] Last Admin: 12/02/20 06:07 Dose: 5,000 units Documented by: Admin: 12/01/20 23:44 Dose: 5,000 units Documented by: Admin: 12/01/20 15:15 Dose: 5,000 units Documented by: LONNIE Hydrochlorothiazide (Hydrochlorothiazide 25 Mg Tab) 25 mg PO DAILY [facility] Last Admin: 12/02/20 09:08 Dose: 25 mg Documented by: ERAN Meloxicam (Meloxicam 7.5 Mg Tab) 7.5 mg PO BID [facility] Last Admin: 12/02/20 09:09 Dose: Not Given Documented by: Admin: 12/01/20 20:08 Dose: Not Given Documented by: MAX Glucosamine 500 Mg (Cap - Pt's Own Med) 0 mg PO DAILY [facility] Last Admin: 12/02/20 09:09 Dose: Not Given Documented by: ERAN [place]-3 Fatty Acids [Fish Oil] 500 Mg Capsule) 0 mg PO DAILY [facility] Last Admin: 12/02/20 09:10 Dose: Not Given Documented by: ERAN Omeprazole (Omeprazole 20 Mg Cap.Cr) 20 mg PO DAILY [facility] Last Admin: 12/02/20 09:08 Dose: 20 mg Documented by: ERAN Oxycodone HCl (Oxycodone Er 10 Mg Tab.Er) 10 mg PO Q12H PRN PRN Reason: Pain Oxycodone/Acetaminophen (Acetaminophen/Oxycodone 325-5 Mg Tab) 0.5 tab PO QID PRN PRN Reason: Pain Sodium Chloride (Sodium Chloride 0.9% 10 Ml Syringe) 10 ml FLUSH ASDIRECTED PRN PRN Reason: Keep Vein Open Last Admin: 11/30/20 22:34 Dose: 10 ml Documented by: BOLA Zolpidem Tartrate (Zolpidem 5 Mg Tab) 5 mg PO BEDTIME [facility] - Assessment Assessment (Free Text/Narrative):: 70 y/o man with SBO, now resolved - Plan Plan (Free Text/Narrative):: - regular diet - discharge home with follow up for heart murmur with PCP - add fiber to bowel regimen May follow up with surgery as needed Alisia Bales MD General surgery
--- NOTE | 2020-12-02 10:24 | PCM.DCSUM1 ---
Discharge Summary - Hospital Course Free Text/Narrative:: The patient is a 70 y/o man who presented to the ED with a SBO. He was admitted for bowel rest, and had ROBF on HOD1. He tolerated his diet on HOD2 and was discharged home with follow up to PCP. Diagnosis: Stroke: No Modified [place] Scale: No Symptoms at All Modified [place] Scale Score: 0 - Discharge Data Discharge Date: 12/02/20 Discharge Disposition: Home, Self-Care 01 Condition: Good - Referral to Home Health Primary Care Physician: PCP None - Discharge Diagnosis/Problem(s) (1) Small bowel obstruction SNOMED Code(s): 674699474 ICD Code: K56.609 - UNSP INTESTNL OBST, UNSP TO PARTIAL VERSUS COMPLETE OBST Status: Acute Current Visit: Yes - Patient Instructions Diet: Usual Diet as Tolerated Activity: As Tolerated Notify Provider of: Fever, Increased Pain, Nausea and/or Vomiting - Discharge Plan *PRESCRIPTION DRUG MONITORING PROGRAM REVIEWED*: Not Applicable *COPY OF PRESCRIPTION DRUG MONITORING REPORT IN PATIENT DARREN: Not Applicable Home Medications: Home Meds Omeprazole 20 mg PO DAILY 10/15/15 [History] Zolpidem [Ambien] 10 mg PO BEDTIME PRN 10/15/15 [History] oxyCODONE ER [OxyCONTIN] 10 mg PO DAILY PRN 10/15/15 [History] oxyCODONE HCl/Acetaminophen [oxyCODONE-Acetaminophen 5-325] 0.5 tab PO TID PRN 10/15/15 [History] polyethylene glycoL 3350 [Miralax] 17 gm PO BID 10/15/15 [History] Docusate Sodium 100 mg PO DAILY PRN 12/01/20 [History] Iron,Carbonyl/Ascorbic Acid [Iron 100-Vitamin C Tablet] 1 tab PO DAILY 12/01/20 [History] Meloxicam 7.5 mg PO BID 12/01/20 [History] Propylene Glycol/Peg 400 [Systane 0.3-0.4% Eye Drops] 1 drop EYEBOTH DAILY PRN 12/01/20 [History] hydroCHLOROthiazide [Hydrochlorothiazide] 25 mg PO DAILY 12/01/20 [History] Patient Handouts: Bowel Obstruction, [id number] Forms: ED Department Discharge Referrals: Rajwinder Gaspar, WEATHER CLERK [Nurse Practitioner] - - Discharge Summary/Plan Comment DC Time >30 min.: No - Patient Data Vitals - Most Recent: Last Vital Signs Temp 36.6 C 12/02/20 09:13 Pulse 57 L 12/02/20 09:13 Resp 20 12/02/20 09:13 BP 133/72 12/02/20 09:13 Pulse Ox 98 12/02/20 09:13 Weight - Most Recent: 95.481 kg I&O - Last 24 hours: Intake & Output 12/01/20 12/02/20 12/02/20 22:59 06:59 14:59 Intake Total 165 2265 Output Total 125 200 Balance 40 2065 Lab Results - Last 24 hrs: Laboratory Results - last 24 hr 12/01/20 12/01/20 12/02/20 Range/Units 09:58 13:26 05:28 WBC 6.66 (4.23-9.07) K/mm3 RBC 3.49 L (4.63-6.08) M/mm3 Hgb 11.3 L D (13.7-17.5) gm/dl Hct 34.4 L (40.1-51.0) % MCV 98.6 H (79.0-92.2) fl MCH 32.4 H (25.7-32.2) pg MCHC 32.8 (32.2-35.5) g/dl RDW Std Deviation 48.9 H (35.1-43.9) fL Plt Count 150 L (163-337) K/mm3 MPV 9.6 (9.4-12.3) fl Neut % (Auto) 75.9 H (34.0-67.9) % Lymph % (Auto) 14.4 L (21.8-53.1) % [place] % (Auto) 9.0 (5.3-12.2) % Eos % (Auto) 0.3 L (0.8-7.0) Baso % (Auto) 0.2 (0.1-1.2) % Neut # (Auto) 5.06 (1.78-5.38) K/mm3 Lymph # (Auto) 0.96 L (1.32-3.57) K/mm3 [place] # (Auto) 0.60 (0.30-0.82) K/mm3 Eos # (Auto) 0.02 L (0.04-0.54) K/mm3 Baso # (Auto) 0.01 (0.01-0.08) K/mm3 Sodium (136-145) mEq/L Potassium (3.5-5.1) mEq/L Chloride (98-107) mEq/L Carbon Dioxide (21-32) mEq/L Anion Gap (5-15) BUN (7-18) mg/dL Creatinine (0.7-1.3) mg/dL Est Cr Clr Drug Dosing mL/min Estimated GFR (MDRD) (>60) mL/min BUN/Creatinine Ratio (14-18) Glucose (70-99) mg/dL Calcium (8.5-10.1) mg/dL Phosphorus (2.6-4.7) mg/dL Magnesium (1.8-2.4) mg/dL SARS-CoV-2 RNA (MARIA A) Negative (NEGATIVE) MRSA (PCR) Negative 12/02/20 Range/Units 05:28 WBC (4.23-9.07) K/mm3 RBC (4.63-6.08) M/mm3 Hgb (13.7-17.5) gm/dl Hct (40.1-51.0) % MCV (79.0-92.2) fl MCH (25.7-32.2) pg MCHC (32.2-35.5) g/dl RDW Std Deviation (35.1-43.9) fL Plt Count (163-337) K/mm3 MPV (9.4-12.3) fl Neut % (Auto) (34.0-67.9) % Lymph % (Auto) (21.8-53.1) % [place] % (Auto) (5.3-12.2) % Eos % (Auto) (0.8-7.0) Baso % (Auto) (0.1-1.2) % Neut # (Auto) (1.78-5.38) K/mm3 Lymph # (Auto) (1.32-3.57) K/mm3 [place] # (Auto) (0.30-0.82) K/mm3 Eos # (Auto) (0.04-0.54) K/mm3 Baso # (Auto) (0.01-0.08) K/mm3 Sodium 147 H (136-145) mEq/L Potassium 3.7 (3.5-5.1) mEq/L Chloride 112 H (98-107) mEq/L Carbon Dioxide 26 (21-32) mEq/L Anion Gap 12.7 (5-15) BUN 21 H (7-18) mg/dL Creatinine 0.7 (0.7-1.3) mg/dL Est Cr Clr Drug Dosing 101.39 mL/min Estimated GFR (MDRD) > 60 (>60) mL/min BUN/Creatinine Ratio 30.0 H (14-18) Glucose 86 (70-99) mg/dL Calcium 8.4 L (8.5-10.1) mg/dL Phosphorus 3.1 (2.6-4.7) mg/dL Magnesium 2.0 (1.8-2.4) mg/dL SARS-CoV-2 RNA (MARIA A) (NEGATIVE) MRSA (PCR) Med Orders - Current: Current Medications Acetaminophen (Acetaminophen 325 Mg Tab) 650 mg PO Q4H PRN PRN Reason: Pain/Fever Last Admin: 12/01/20 19:31 Dose: 650 mg Documented by: Artificial Tears (Carboxymethylcellulose Sodium 1% Ophth Gel 15 Ml Bottle) 0 ml EYEBOTH DAILY PRN PRN Reason: Dry Eyes Ascorbic Acid (Ascorbic Acid 500 Mg Tab) 500 mg PO DAILY [facility] Last Admin: 12/02/20 09:08 Dose: 500 mg Documented by: Ferrous Sulfate (Ferrous Sulfate 324 Mg Tab.Ec) 324 mg PO DAILY [facility] Last Admin: 12/02/20 09:08 Dose: 324 mg Documented by: Heparin Sodium (Porcine) (Heparin Sodium 5,000 Units/Ml Vial) 5,000 units SUBCUT Q8H [facility] Last Admin: 12/02/20 06:07 Dose: 5,000 units Documented by: Hydrochlorothiazide (Hydrochlorothiazide 25 Mg Tab) 25 mg PO DAILY [facility] Last Admin: 12/02/20 09:08 Dose: 25 mg Documented by: Meloxicam (Meloxicam 7.5 Mg Tab) 7.5 mg PO BID [facility] Last Admin: 12/02/20 09:09 Dose: Not Given Documented by: Glucosamine 500 Mg (Cap - Pt's Own Med) 0 mg PO DAILY [facility] Last Admin: 12/02/20 09:09 Dose: Not Given Documented by: [place]-3 Fatty Acids [Fish Oil] 500 Mg Capsule) 0 mg PO DAILY [facility] Last Admin: 12/02/20 09:10 Dose: Not Given Documented by: Omeprazole (Omeprazole 20 Mg Cap.Cr) 20 mg PO DAILY [facility] Last Admin: 12/02/20 09:08 Dose: 20 mg Documented by: Oxycodone HCl (Oxycodone Er 10 Mg Tab.Er) 10 mg PO Q12H PRN PRN Reason: Pain Oxycodone/Acetaminophen (Acetaminophen/Oxycodone 325-5 Mg Tab) 0.5 tab PO QID PRN PRN Reason: Pain Sodium Chloride (Sodium Chloride 0.9% 10 Ml Syringe) 10 ml FLUSH ASDIRECTED PRN PRN Reason: Keep Vein Open Last Admin: 11/30/20 22:34 Dose: 10 ml Documented by: Zolpidem Tartrate (Zolpidem 5 Mg Tab) 5 mg PO BEDTIME [facility] Discontinued Medications Acetaminophen (Acetaminophen 325 Mg Tab) Confirm Administered Dose 650 mg .ROUTE .STK-MED ONE Stop: 12/01/20 03:19 Last Admin: 12/01/20 13:42 Dose: Not Given Documented by: Acetaminophen (Acetaminophen 325 Mg Tab) 325 mg PO NOW ONE Stop: 12/01/20 04:08 Last Admin: 12/01/20 04:08 Dose: 325 mg Documented by: Diatrizoate Meglum/Diatrizoate Sod (Diatrizoate Meglumine/Diatrizoate Sodium 37% 120 Ml Bottle) 120 ml PO ONETIME ONE Stop: 12/01/20 08:33 Last Admin: 12/01/20 08:33 Dose: 30 ml Documented by: Hydrochlorothiazide (Hydrochlorothiazide 25 Mg Tab) 25 mg PO DAILY [facility] Sodium Chloride (Normal Saline) 1,000 mls @ 150 mls/hr IV ASDIRECTED [facility] Last Admin: 11/30/20 22:34 Dose: 150 mls/hr Documented by: Lactated Ringer's (Ringers, Lactated) 1,000 mls @ 125 mls/hr IV ASDIRECTED [facility] Last Admin: 12/02/20 00:45 Dose: 125 mls/hr Documented by: Iopamidol (Iopamidol 612 Mg/Ml 100 Ml Bottle) 100 ml IVPUSH ONETIME ONE Stop: 12/01/20 08:33 Last Admin: 12/01/20 08:33 Dose: 100 ml Documented by: Ondansetron HCl (Ondansetron 4 Mg/2 Ml Sdv) 4 mg IVPUSH ONETIME ONE Stop: 11/30/20 22:13 Last Admin: 11/30/20 22:34 Dose: 4 mg Documented by: Oxycodone HCl (Oxycodone Er 10 Mg Tab.Er) 10 mg PO Q12H PRN PRN Reason: Pain Oxycodone/Acetaminophen (Acetaminophen/Oxycodone 325-5 Mg Tab) 0.5 tab PO QID PRN PRN Reason: Pain Last Admin: 12/01/20 16:48 Dose: 0.5 tab Documented by: Sodium Chloride (Sodium Chloride 0.9% 10 Ml Syringe) 10 ml FLUSH ONETIME PRN PRN Reason: IV FLUSH Last Admin: 12/01/20 08:33 Dose: 10 ml Documented by: Zolpidem Tartrate (Zolpidem 5 Mg Tab) 5 mg PO BEDTIME [facility] Last Admin: 12/01/20 20:05 Dose: 5 mg Documented by:
[2020-12-02] MEDS ORDERED: Zolpidem 5 MG Tab PO SCH (21:00)
== END 2020-12-02 10:48 | disposition home or self-care (01) ==
LOC: JD.ED 21:42 → JD.MS 12-01 10:00
PROVIDERS: ADMIT Surgery; ATTEND Surgery
DX: K56.609 Unspecified intestinal obstruction, unspecified as to partial versus complete obstruction (principal); Z20.822 Contact with and (suspected) exposure to COVID-19; Z79.899 Other long term (current) drug therapy; Z98.890 Other specified postprocedural states
CPT/HCPCS: 36415; 74019; 74177; 80048; 80053; 81003; 83735; 84100; 85025; 87081; 87641; 96372; 96374; 99285; A9270; G0378; J1644; J2405; J7030; J7120; Q9963; Q9967; U0002; 87070; 87205